=== PATIENT | male | born 1985 | race Caucasian/White ===

== ENCOUNTER 2016-11-26 10:05 | Outpatient (CLI) | payer OTHER ==
--- NOTE | 2016-11-26 12:16 | DIAGNOSTIC IMAGING REPORT ---
PROCEDURE: US SCROTUM/TESTICLE INDICATION: RT TESTICULAR PAIN TECHNIQUE: Jay scale and color Doppler sonographic images through the scrotum were obtained. COMPARISON: None. FINDINGS: The right testicle measures 4.2 x 2.9 x 2.3 centimeter and the left measures 3.9 x 2.8 x 2.3 cm Both testicles demonstrate homogeneous echotexture without solid mass, cyst, or numerous microcalcifications. Color Doppler imaging demonstrates normal and symmetric arterial and venous testicular flow. No suspicious hyperemia. The epididymi are normal in size, echotexture, and vascularity. No hydrocele or varicocele. No significant scrotal skin thickening. There is a small reducible right inguinal hernia. IMPRESSION: 1. Normal testicular ultrasound. 2. Small reducible right inguinal hernia
== END 2016-11-26 23:00 ==
LOC: US SRH 10:05
DX: N50.811 Right testicular pain (principal)